=== PATIENT | female | born 1930 | race Caucasian/White ===

== ENCOUNTER 2016-12-04 15:18 | Emergency (ER) | payer OTHER ==
[2016-12-04 15:22] VITALS: TEMP 97.9
[2016-12-04 15:28] VITALS: BMI 15.6
[2016-12-04 15:42] LABS: AUTOMATED BASOPHIL 1.1 % (0-2); AUTOMATED EOSINOPHIL 0.5 % (0-5); AUTOMATED LYMPH 25.3 % (17-44); AUTOMATED MONOCYTE 6.4 % (3-10); AUTOMATED NEUTROPHIL 66.7 % (45-76); MPV 8.7 fL (7.4-10.4)
[2016-12-04 15:55] LABS: PARTIAL THROMB. TIME 24.6 SEC (22-35)
[2016-12-04 16:02] LABS: BLOOD UREA NITROGEN 14 MG/DL (7-17); CALCIUM 9.7 MG/DL (8.4-10.2); CALCULATED OSMOLALITY 271 MOs/Kg (270-290); CHLORIDE 103 mEq/L (98-107); GLUCOSE 114 mg/dL (70-99); SODIUM LEVEL 140 mEq/L (137-146); TOTAL PROTEIN 8.1 G/DL (6.3-8.2)
[2016-12-04 16:24] LABS: AMORPHOUS OCC; LEUKOCYTES/URINE NEG (NEGATIVE); NITRITE/URINE NEG (NEGATIVE); RBC/URINE 0-2 (0-5); URINE OCCULT BLOOD NEG (NEG/TRACE); WBC/URINE 0-2 (0-5)
--- NOTE | 2016-12-04 21:47 | EDPRACDOC ---
<Rosemary Traore - Last Filed: 12/05/16 00:32> - General Information Mode Of Arrival: Car - History of Present Illness Onset: 4 days Pain Location: Reports: RLQ Pain Context: Reports: Spontaneous Pain Severity: Moderate Pain Quality: Reports: Aching, Sharp Pain Radiation: Reports: No Radiation Oral Intake: Normal Urinary Output: Normal <Durga Kapoor - Last Filed: 12/05/16 05:16> - General Information Chief Complaint: Abdominal Pain Stated Complaint: RT GROIN PAIN Home Medications: Home Medications Amlodipine [Norvasc] 5 mg PO DAILY 08/13/14 CloNIDine (Antihypertensive) [Catapres] 0.1 mg PO BID 04/17/16 Levothyroxine [Synthroid, Levoxyl] 75 mcg PO DAILY 04/17/16 Tramadol HCl 50 mg PO Q6 PRN #10 tablet 12/05/16 Allergies/Adverse Reactions: Allergies Allergy/AdvReac Type Severity Reaction Status Date / Time No Known Allergies Allergy Verified 12/04/16 15:25 - History of Present Illness HPI: C/o constant throbbing pain in right groin x 4 days. Pain is better with advil. 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 Pt states this "feels just like it did before they did the surgery". Denies cp, sob, fever, V/D , changes in urine or BM. Med hx = HTN, hypothyorid. 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 Does not take blood thinner or antiplatelet. (Durga Kapoor) ED Past Medical History - History Reviewed Yes Nurses notes reviewed and agree except as marked - Patient Medical History Cardiac History: Reports: Hypertension Respiratory History: Reports: Emphysema (PER CT SCAN) Systemic History: Reports: Hypothyroidism - Family Medical History Reports: Hypertension, Cancer (MOTHER), Stroke (FATHER), Cardiac Disorders ( BROTHERS) - Social Medical History Smoking Status: Never smoker <Durga Kapoor - Last Filed: 12/05/16 05:16> EDM Review of Systems - Review of Systems ROS Negative Except as Marked: Yes All systems reviewed and were negative except as marked Gastrointestinal: Pain (RLQ) <Durga Kapoor - Last Filed: 12/05/16 05:16> - Physical Exam Constitutional: No apparent distress, Alert Oriented to: Time, Person, Place - HEENT Head: Normal Eye Exam: negative: Conjunctival Injection, Scleral Icterus Oropharynx: negative: Drooling TMJ: Normal Nose: No Symptoms Reported Neck: Normal - Respiratory/Cardiovascular Respiratory: Normal - CTA Cardiovascular: Normal - GI Tenderness: Non tender - Musculoskeletal Back: Normal Extremities: Normal - Integumentary Skin: Normal - Neurologic Mood Description: Normal Thought: Coherent Perception: Normal <Durga Kapoor - Last Filed: 12/05/16 05:16> - Physical Exam Last recorded Vital Signs: Last Vital Signs Temp 97.9 F 12/04/16 15:18 Pulse 60 12/05/16 00:49 Resp 18 12/05/16 00:49 BP 123/59 L 12/05/16 00:49 Pulse Ox 94 12/05/16 00:49 Oxygen Pulse Oxygen Saturation 94 O2 Device Room Air Oxygen Flow Rate Fraction of Inspired Oxygen ( FIO2) (Rosemary Traore) (Durga Kapoor) - Results 12/04/16 15:34 12/04/16 15:34 - Diagnostic Imaging Pelvis Image interpreted by: Radiologist <Rosemary Traore - Last Filed: 12/05/16 00:32> - Results 12/04/16 15:34 12/04/16 15:34 <Durga Kapoor - Last Filed: 12/05/16 05:16> - Results WBC 9.3 xk/uL (3.8-10.8) 12/04/16 15:34 RBC 4.99 xM/uL (4.20-5.40) 12/04/16 15:34 Hgb 14.2 g/dL (12.0-16.0) 12/04/16 15:34 Hct 41.9 % (36-47) 12/04/16 15:34 MCV 84 fL (81-99) 12/04/16 15:34 MCH 28.4 pg (27-32) 12/04/16 15:34 MCHC 33.8 g/dl (33-36) 12/04/16 15:34 RDW 16.0 % (11.5-14.5) H 12/04/16 15:34 Plt Count 266 xk/uL (130-400) 12/04/16 15:34 MPV 8.7 fL (7.4-10.4) 12/04/16 15:34 Neut % (Auto) 66.7 % (45-76) 12/04/16 15:34 Lymph % (Auto) 25.3 % (17-44) 12/04/16 15:34 [place] % (Auto) 6.4 % (3-10) 12/04/16 15:34 Eos % (Auto) 0.5 % (0-5) 12/04/16 15:34 Baso % (Auto) 1.1 % (0-2) 12/04/16 15:34 Absolute Neuts (auto) 6.14 xk/uL (1.7-8.2) 12/04/16 15:34 Absolute Lymphs (auto) 2.33 xk/uL (0.65-4.75) 12/04/16 15:34 PT 10.7 SEC (9.2-11.2) 12/04/16 15:34 INR 1.0 12/04/16 15:34 APTT 24.6 SEC (22-35) 12/04/16 15:34 Sodium 140 mEq/L (137-146) 12/04/16 15:34 Potassium 3.6 mEq/L (3.5-5.1) 12/04/16 15:34 Chloride 103 mEq/L (98-107) 12/04/16 15:34 Carbon Dioxide 27 mMOL/L (22-33) 12/04/16 15:34 Anion Gap 14 mEq/L (8-16) 12/04/16 15:34 BUN 14 MG/DL (7-17) 12/04/16 15:34 Creatinine 0.70 MG/DL (0.52-1.04) 12/04/16 15:34 Estimated GFR (MDRD) > 60 mL/min (>=60) 12/04/16 15:34 Glucose 114 mg/dL (70-99) H 12/04/16 15:34 Calculated Osmolality 271 MOs/Kg (270-290) 12/04/16 15:34 Calcium 9.7 MG/DL (8.4-10.2) 12/04/16 15:34 Total Bilirubin 0.6 MG/DL (0.2-1.3) 12/04/16 15:34 AST 26 IU/L (14-36) 12/04/16 15:34 ALT 26 IU/L (9-52) 12/04/16 15:34 Alkaline Phosphatase 85 IU/L (55-165) 12/04/16 15:34 Troponin I 0.02 ng/mL (<.04) 12/04/16 18:00 Ucu-E-Rahsjsqgbhf Pept 2360 pg/mL (0-1800) H 12/04/16 15:34 Total Protein 8.1 G/DL (6.3-8.2) 12/04/16 15:34 Albumin 4.5 G/DL (3.5-5.0) 12/04/16 15:34 Urine Color Yellow 12/04/16 15:48 Urine Clarity Clear 12/04/16 15:48 Urine pH 6.0 (5.0-8.0) 12/04/16 15:48 Ur Specific [place] 1.015 (1.003-1.035) 12/04/16 15:48 Urine Protein 1+ (NEG/TRACE) H 12/04/16 15:48 Urine Glucose (UA) Neg (NEGATIVE) 12/04/16 15:48 Urine Ketones Neg (NEGATIVE) 12/04/16 15:48 Urine Occult Blood Neg (NEG/TRACE) 12/04/16 15:48 Urine Nitrite Neg (NEGATIVE) 12/04/16 15:48 Urine Bilirubin Neg (NEGATIVE) 12/04/16 15:48 Urine Urobilinogen <2.0 MG/DL (0-1) 12/04/16 15:48 Ur Leukocyte Esterase Neg (NEGATIVE) 12/04/16 15:48 Urine RBC 0-2 (0-5) 12/04/16 15:48 Urine WBC 0-2 (0-5) 12/04/16 15:48 Ur Epithelial Cells Occ 12/04/16 15:48 Amorphous Sediment Occ 12/04/16 15:48 Urine Bacteria Few (NEG/FEW) 12/04/16 15:48 Lab Results 12/04/16 12/04/16 12/04/16 18:00 15:48 15:34 WBC RBC Hgb Hct MCV MCH MCHC RDW Plt Count MPV Neut % (Auto) Lymph % (Auto) [place] % (Auto) Eos % (Auto) Baso % (Auto) Absolute Neuts (auto) Absolute Lymphs (auto) PT 10.7 INR 1.0 APTT 24.6 Sodium Potassium Chloride Carbon Dioxide Anion Gap BUN Creatinine Estimated GFR (MDRD) Glucose Calculated Osmolality Calcium Total Bilirubin AST ALT Alkaline Phosphatase Troponin I 0.02 Tmc-R-Leegupmobkn Pept Total Protein Albumin Urine Color Yellow Urine Clarity Clear Urine pH 6.0 Ur Specific [place] 1.015 Urine Protein 1+ H Urine Glucose (UA) Neg Urine Ketones Neg Urine Occult Blood Neg Urine Nitrite Neg Urine Bilirubin Neg Urine Urobilinogen <2.0 Ur Leukocyte Esterase Neg Urine RBC 0-2 Urine WBC 0-2 Ur Epithelial Cells Occ Amorphous Sediment Occ Urine Bacteria Few 12/04/16 12/04/16 15:34 15:34 WBC 9.3 RBC 4.99 Hgb 14.2 Hct 41.9 MCV 84 MCH 28.4 MCHC 33.8 RDW 16.0 H Plt Count 266 MPV 8.7 Neut % (Auto) 66.7 Lymph % (Auto) 25.3 [place] % (Auto) 6.4 Eos % (Auto) 0.5 Baso % (Auto) 1.1 Absolute Neuts (auto) 6.14 Absolute Lymphs (auto) 2.33 PT INR APTT Sodium 140 Potassium 3.6 Chloride 103 Carbon Dioxide 27 Anion Gap 14 BUN 14 Creatinine 0.70 Estimated GFR (MDRD) > 60 Glucose 114 H Calculated Osmolality 271 Calcium 9.7 Total Bilirubin 0.6 AST 26 ALT 26 Alkaline Phosphatase 85 Troponin I 0.01 Kat-Z-Qeiluysyent Pept 2360 H Total Protein 8.1 Albumin 4.5 Urine Color Urine Clarity Urine pH Ur Specific [place] Urine Protein Urine Glucose (UA) Urine Ketones Urine Occult Blood Urine Nitrite Urine Bilirubin Urine Urobilinogen Ur Leukocyte Esterase Urine RBC Urine WBC Ur Epithelial Cells Amorphous Sediment Urine Bacteria (Rosemary Traore) (Durga Kapoor) - Diagnostic Imaging Pelvis 12/05/16 00:32 Patient Name: ELAINE HENRY LOC: ED : 1930 AGE: 86 Order Date:12/04/16 Date of Service:04/14 Report # [id number] Ord Physician: Rosemary Traore MD Exam # [id number] Emergency Physician: Rosemary Traore MD Exam(s): [id number] CT/CT PELVIS W/IV CM CLINICAL DATA: Acute onset of right inguinal pain and right lower quadrant abdominal pain. Personal history of aortic and femoral aneurysm repairs. Initial encounter. EXAM: CT PELVIS WITH CONTRAST TECHNIQUE: Multidetector CT imaging of the pelvis was performed using the standard protocol following the bolus administration of intravenous contrast. CONTRAST: 60 mL of Isovue 370 IV contrast COMPARISON: CT of the pelvis performed 04/13/2016 FINDINGS: No acute focal abnormality is seen to explain the patient's symptoms. 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 Surrounding postoperative change is noted. Visualized inguinal nodes remain normal in size. Visualized small and large bowel loops are grossly unremarkable in appearance. The bladder is mildly distended and grossly unremarkable. The uterus is grossly unremarkable in appearance. No suspicious adnexal masses are seen. The ovaries are relatively symmetric. 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 No acute osseous abnormalities are seen. There is chronic deformity involving the left inferior pubic ramus. IMPRESSION: 1. No focal abnormalities seen to explain the patient's symptoms. 2. 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 3. 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 4. 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 Electronically Signed By: Alexei Ricks M.D. On: 12/04/2016 23:34 Electronically Signed By: Alexei Ricks MD Electronically Signed Date/Time: [id number] Dictate Date/Time: 12/04/162323 Technologist: Yolanda Ramos Transcribed By: Colleen Transcribed Date/Time: 12/04/16 1869 (Rosemary Tarore) - Departure Yes I personally saw and evaluated the patient. <Rosemary Traore - Last Filed: 12/05/16 00:32> Decision Time to Discharge: 00:43 - Departure Disposition: Home Education/Counseling Given To: Patient, Family Member Education/Counseling Given Regarding: Diagnosis, Treatment, Prognosis, Follow Up <Durga Kapoor - Last Filed: 12/05/16 05:16> - Departure Condition: Stable Final Diagnosis: Abdominal pain Qualifiers: Abdominal location: right lower quadrant Qualified Code(s): R10.31 - Right lower quadrant pain Instructions: Non-pharmacological Pain Management Therapies for Adults (GEN), Acute Abdominal Pain (ED), Abdominal Pain (ED) Referrals: Sp Powell MD [Primary Care Provider] - One Week Prescriptions: New Tramadol HCl 50 mg PO Q6 PRN #10 tablet PRN Reason: Pain No Action Amlodipine [Norvasc] 5 mg PO DAILY Levothyroxine [Synthroid, Levoxyl] 75 mcg PO DAILY CloNIDine (Antihypertensive) [Catapres] 0.1 mg PO BID Additional Instructions: Follow up with primary care. Return to ED for any new or worsening symptoms.
[2016-12-04] MEDS ORDERED: TRAMADOL HCL 50 MG TAB PO ONE (21:56)
[2016-12-04] MEDS ORDERED: ENALAPRILAT 1.25 MG/ML VIAL IV ONE (22:17)
[2016-12-04] MEDS ORDERED: Pharmacy Review for Metformin - IV Contrast Given SCH (23:00)
--- NOTE | 2016-12-04 23:37 | DIRPT ---
CLINICAL DATA: Acute onset of right inguinal pain and right lower quadrant abdominal pain. Personal history of aortic and femoral aneurysm repairs. Initial encounter. EXAM: CT PELVIS WITH CONTRAST TECHNIQUE: Multidetector CT imaging of the pelvis was performed using the standard protocol following the bolus administration of intravenous contrast. CONTRAST: 60 mL of Isovue 370 IV contrast COMPARISON: CT of the pelvis performed 04/13/2016 FINDINGS: No acute focal abnormality is seen to explain the patient's symptoms. 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 Surrounding postoperative change is noted. Visualized inguinal nodes remain normal in size. Visualized small and large bowel loops are grossly unremarkable in appearance. The bladder is mildly distended and grossly unremarkable. The uterus is grossly unremarkable in appearance. No suspicious adnexal masses are seen. The ovaries are relatively symmetric. 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 No acute osseous abnormalities are seen. There is chronic deformity involving the left inferior pubic ramus. IMPRESSION: 1. No focal abnormalities seen to explain the patient's symptoms. 2. 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 3. 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 4. 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 Electronically Signed By: Alexei Ricks M.D. On: 12/04/2016 23:34
[2016-12-05 00:49] VITALS: BP 123/59; PULSE 60
== END 2016-12-05 00:49 | disposition home or self-care (01) ==
LOC: ED 15:18
DX: R10.31 Right lower quadrant pain (principal); I10 Essential (primary) hypertension; E03.9 Hypothyroidism, unspecified; Z79.899 Other long term (current) drug therapy
CPT/HCPCS: 36415; 72193; 80053; 81001; 83880; 84484; 85025; 85610; 85730; 93005; 96374; 99285; A9270; A9698; J3490